=== PATIENT | male | born 1965 | race Caucasian/White ===

== ENCOUNTER 2025-04-30 10:31 | Emergency (ER) | payer MEDICARE, MEDICAID, SELFPAY ==
[2025-04-30 10:38] VITALS: BP 119/81
--- NOTE | 2025-04-30 11:41 | ED.SKININJ ---
HPI-Injury
General
Chief Complaint: Bite
Source: patient
Exam Limitations: none
Time Seen by Provider: 04/30/25 11:23
Nursing documentation reviewed up to this point in time: agreed with
History of Present Illness-Injury
Initial Injury comments:
59-year-old male presents to the ER for evaluation of a bee sting. Patient has a TBI and is a limited historian is from [facility]. He reports today he got stung to his right fourth finger by a bee and has complaints of swelling.
He reports in the past he had significant swelling from bee sting. He has no difficulty breathing or lip or tongue swelling. no other swelling .
Past History
Past History
ED Past Medical History: Other (traumatic brain injury)
ED Past Surgical History: None
Patient has exhibited threatening behavior?: No
Social History
Personal: Single
Living: other (traumatic brain injury facility)
Employment: Not employed
Phy Exam
General Physical Exam
General Presentation: no apparent distress
General age: appears stated age
General Skin: warm and dry
General Habitus: normal
General Mental: alert
General Hydration: appears well hydrated
ENT Exam
ENT Exam: EOMI and other (No lip or tongue swelling, no drooling, tongue secretions)
Cardiovascular Exam
Cardiovascular Exam: regular rate/rhythm, no murmur and normal peripheral pulses
Pulmonary Exam
Pulmonary Exam: lungs clear and no respiratory distress
Neurological Exam
Neurological Exam: alert and oriented x3
Musculoskeletal Exam
Musculoskeletal Exam: other (Right fourth finger with obvious swelling minimal swelling to dorsal hand)
Course
Vital Signs
Initial and Last Documented VS:
Initial Vital Signs
Temp Pulse Resp BP Pulse Ox
98.1 F 75 18 119/81 97
04/30/25 10:38 04/30/25 10:38 04/30/25 10:38 04/30/25 10:38 04/30/25 10:38
Last Documented Vital Signs
Temp Pulse Resp BP Pulse Ox
98.1 F 75 18 119/81 97
04/30/25 10:38 04/30/25 10:38 04/30/25 10:38 04/30/25 10:38 04/30/25 10:38
*Pulse Oximetry
SaO2: 97
Oxygen Mode of Delivery: Room air
Patient hypoxic: no
*Critical Care Note
Total Time (30-74mins, 75-104mins- exclusive of procedures): Not Applicable
ED Attending Note
-
Portions of this chart may have been created with voice recognition software.� Occasional wrong word or��sound alike� substitutions may have occurred due to the inherent limitations of voice recognition software.
Discharge Plan
Departure
Patient Disposition: Home (Routine Discharge)
Date of Disposition: 04/30/25
Time of Disposition: 11:56
Patient with high blood pressure during this ER visit?: No
Condition: Fair
Covid-19: Not Applicable
Discharge Problem:
Bee sting
Instructions: Insect Bites and Stings (DC)
Prescriptions:
New
epinephrine [EpiPen 2-Ramiro] 0.3 mg/0.3 mL auto-injector
0.3 mg IM ONCE Qty: 2 0RF
Referrals:
Mansoor Ag DO [Family Provider, Internal Medicine]
Activity Restrictions/Additional Instructions:
You were given a dose of Benadryl, Pepcid and steroids here in the ER. Please ice the affected area for the next 24 hours 20 minutes at a time several times a day. You also may take ibuprofen. You may continue to Benadryl every 4-6 hours as
needed. If needed a prescription for EpiPen was sent to your pharmacy. Please follow-up with a family doctor for reevaluation. Return if any worsening of simply increasing swelling difficulty breathing or any further concerns.
Interventions
Interventions:
*Risk Screen - Suicide Last Done: 04/30/25 10:38
Discharge Date and Time
Print Language: BRAZILIAN
[2025-04-30] MEDS: BENADRYL 50 MG PO (11:55)
[2025-04-30] MEDS: PEPCID 40 MG PO (11:55)
[2025-04-30] MEDS: DECADRON 10 MG PO (11:55)
[2025-04-30 13:30] VITALS: BP 125/86
== END 2025-04-30 14:01 | disposition home or self-care (01) ==
LOC: EMR 10:31
PROVIDERS: EMERGENCY PHYSICIAN Emergency Medicine; FAMILY PHYSICIAN Internal Medicine Geriatric Medicine
DX: T63.441A Toxic effect of venom of bees, accidental (unintentional), initial encounter (principal); M79.89 Other specified soft tissue disorders; X58.XXXA Exposure to other specified factors, initial encounter; Z87.820 Personal history of traumatic brain injury
CPT/HCPCS: 99283

== ENCOUNTER 2025-07-29 06:35 | Emergency (ER) | payer MEDICARE, OTHER, SELFPAY ==
[2025-07-29 06:37] VITALS: BP 127/81
--- NOTE | 2025-07-29 07:07 | ED.GENMED ---
History of Present Illness
General
Chief Complaint: Fall
Source: patient
Time Seen by Provider: 07/29/25 06:44
History of Present Illness
History of Present Illness:
60-year-old male presents to the emergency room complaining of left side pain. Patient had a fall causing him to land on a hard chair. Fall happened yesterday. He has pain but no shortness of breath. No fever or chills. No abdominal pain.
Patient does not take any oral anticoagulants.
Past History
Past History
ED Past Medical History: Other (traumatic brain injury)
ED Past Surgical History: None
Patient has exhibited threatening behavior?: No
Social History
Personal: Single
Living: other (traumatic brain injury facility)
Employment: Not employed
Phy Exam
Physical Exam
Physical Exam:
General: Awake, Alert, Oriented X3. No acute distress.
Vitals: unremarkable
Head: Atraumatic
Eyes: Pupils equal, EOMI
Throat: Airway intact, no exudates
Neck: Trachea midline
Chest: Some point tenderness palpation lateral left lower thorax. No crepitance.
Lungs: Clear and equal b/l
Heart: Regular rate, no murmurs
Abd: Soft, Nontender, No pulsatile mass
Neuro: Nonfocal
Skin: Warm, dry, no rash
Extremities: pulses equal b/l, no edema
Course
Orders/Labs/Results
Orders:
Orders
07/29/25 07:06
Ribs, Left 3 View W/PA Chest CR [CR Ribs-left 3 Vw W/pa Chest] Urgent
Comment:
Reason For Exam: fall, left lower thorax pain
07/29/25 07:07
Ibuprofen [Motrin] 600 mg PO NOW STA
Vital Signs
Initial and Last Documented VS:
Initial Vital Signs
Temp Pulse Resp BP Pulse Ox
97.7 F 60 16 127/81 98
07/29/25 06:37 07/29/25 06:37 07/29/25 06:37 07/29/25 06:37 07/29/25 06:37
Last Documented Vital Signs
Temp Pulse Resp BP Pulse Ox
97.7 F 60 16 127/81 98
07/29/25 06:37 07/29/25 06:37 07/29/25 06:37 07/29/25 06:37 07/29/25 07:09
MDM/Problems Addressed
Differential Diagnosis Includes:
Rib fracture, pneumothorax, chest wall contusion
MDM/Problems Addressed:
Patient presents with left-sided thorax pain after a fall. Physical exam is essentially normal. Rib series showed no fracture or pneumothorax. Will treat the patient with ibuprofen. Incentive spirometer. Stable for discharge back to his
facility.
*Radiology
Radiology exam reviewed: preliminary read by ED provider (No fracture or pneumothorax noted on my review of the patient's chest x-ray)
*Pulse Oximetry
SaO2: 98
Oxygen Mode of Delivery: Room air
Patient hypoxic: no
*Critical Care Note
Total Time (30-74mins, 75-104mins- exclusive of procedures): Not Applicable
ED Attending Note
-
Portions of this chart may have been created with voice recognition software.� Occasional wrong word or��sound alike� substitutions may have occurred due to the inherent limitations of voice recognition software.
Discharge Plan
Departure
Patient Disposition: Home (Routine Discharge)
Date of Disposition: 07/29/25
Time of Disposition: 09:02
Patient with high blood pressure during this ER visit?: No
Condition: Good
Discharge Problem:
Chest wall contusion
Instructions: How to use an incentive spirometer, Blunt chest trauma - ED (DC)
Prescriptions:
New
ibuprofen 600 mg tablet
600 mg PO QID PRN (Reason: Pain) Qty: 30 0RF
No Action
epinephrine [EpiPen 2-Ramiro] 0.3 mg/0.3 mL auto-injector
0.3 mg IM ONCE Qty: 2 0RF
Referrals:
NONE,* [Family Provider, Internal Medicine]
Activity Restrictions/Additional Instructions:
You can take 600mg of ibuprofen and 650mg of Tylenol every 6 hours for pain
Interventions
Interventions:
*Risk Screen - Suicide Last Done: 07/29/25 06:42
*General Assessment Last Done: 07/29/25 06:41
*Neglect/Abuse Screening Last Done: 07/29/25 06:41
*ED COVID-19 Vaccine History Last Done: 07/29/25 06:41
*ED Influenza Vaccine History Last Done: 07/29/25 06:41
[facility] Fall Risk Assessment Tool Last Done: 07/29/25 06:40
*Nursing Disposition Last Done: 07/29/25 09:43
ED-Musculoskeletal Assessment Last Done: 07/29/25 06:42
ED- Neurological Assessment Last Done: 07/29/25 06:42
ED-Skin Assessment Last Done: 07/29/25 06:42
Discharge Date and Time
Discharge Date/Time: 07/29/25 09:47
Print Language: THAI
[2025-07-29] MEDS: MOTRIN 600 MG PO (07:11)
== END 2025-07-29 09:47 | disposition home or self-care (01) ==
LOC: EMR 06:35
PROVIDERS: EMERGENCY PHYSICIAN Emergency Medicine
DX: S20.219A Contusion of unspecified front wall of thorax, initial encounter (principal); W19.XXXA Unspecified fall, initial encounter; Z87.820 Personal history of traumatic brain injury
CPT/HCPCS: 99283; 71101